=== PATIENT | male | born 1955 | race Asian ===

== ENCOUNTER 2017-03-20 13:14 | Emergency (ER) | payer BC, OTHER ==
[~2017-03-20] VITALS: Ht 170.2 cm; Wt 98.5 kg
[2017-03-20 13:19] VITALS: Ht 170.2 cm; Wt 98.5 kg
[2017-03-20] MEDS ORDERED: ACETAMINOPHEN 500 MG TAB PO STA (14:49)
[2017-03-20 15:05] LABS: URINE BLOOD (Dip) POC 1+ (NEGATIVE)
--- NOTE | 2017-03-20 15:39 | RADRPT ---
PROCEDURE: XR Lumbar Spine. CLINICAL INDICATION: Back pain. TECHNIQUE: 2 views. Frontal and lateral. COMPARISON: No prior studies are available for comparison. FINDINGS: There is normal stature and alignment of the vertebrae. There is no fracture. There is no lytic or blastic lesion. The disk height is normal. Small osteophytes are present anteriorly at L2-3, L3-4, and L4-5. Vascular calcifications are present consistent with atherosclerosis. IMPRESSION: 1. Mild degenerative change. 2. Atherosclerosis. 3. No acute abnormality. RPTAT: QQ .Floyd Antonio MD, MD Date Time Electronically viewed and signed by .Floyd Antonio MD, on 03/20/2017 15:39 .R/
[2017-03-20] MEDS ORDERED: TRAM50TA2 PO (15:52)
--- NOTE | 2017-03-20 16:53 | ERD ---
ER Documentation Chief Complaint Date/Time DATE: 03/20/17 TIME: 16:52 Chief Complaint LOWER BACK PAIN X 5 DAYS HPI Patient is a 61 year old male with PMHx of HTN, DM, COPD, CKD who presents to the ED with lower back pain x 5 days. Patient states pain is localized to left lumbar region. Patient states the pain started after sleeping on the couch. Patient states the pain is worse with movement and when getting up from a sitting to standing position. Patient states that he initially was unable to lift his left leg when lying down secondary to pain, however it is slowly improving. Patient denies any dysuria, frequency, urgency or hematuria. Patient denies any saddle anesthesia, urinary incontinence, stool incontinence, night pain, history of cancer or recent trauma. Patient denies any fever, chills, chest pain, SOB, abdominal pain, neck pain. ROS All systems reviewed and are negative except as per history of present illness. Medications Home Meds Active Scripts Tramadol HCl (Tramadol HCl) 50 Mg Tablet, 50 MG PO Q4 Y for PAIN, #20 TAB Prov:JORGE DUMONT PA-C 03/20/17 Allergies Allergies: Coded Allergies: No Known Allergy (Unverified , 03/20/17) PMhx/Soc History of Surgery: No Anesthesia Reaction: No Hx Neurological Disorder: Yes (STROKE ) Hx Cardiac Disorders: No Hx Miscellaneous Medical Probl: Yes (HTN. HIGH CHOLESTEROL. DM .) Hx Alcohol Use: No Hx Substance Use: No Hx Tobacco Use: Yes Smoking Status: Current some day smoker Physical Exam Vitals Vital Signs Date Time Temp Pulse Resp B/P Pulse Ox O2 Delivery O2 Flow Rate FiO2 03/20/17 13:19 97.8 89 18 131/85 95 Physical Exam GENERAL: Well-developed, well-nourished male. Appears in no acute distress. HEAD: Normocephalic, atraumatic. EYES: Pupils are equally reactive bilaterally. EOMs grossly intact. No conjunctival erythema. ENT: Moist mucous membranes. No uvula deviation. No kissing tonsils. NECK: Supple. No meningismus. Normal range of motion of the neck. LUNG: Clear to auscultation bilaterally. No rhonchi, wheezing, rales or coarse breath sounds. HEART: Regular rate and rhythm. No murmurs, rubs or gallops. ABDOMEN: No scars, ecchymosis or rashes noted. Soft, nontender, and nondistended. Positive bowel sounds in all four quadrants. No rebound tenderness , no guarding. (-) McBurney's point tenderness. No CVA tenderness. BACK: No midline tenderness. Negative straight leg raise bilaterally. EXTREMITIES: Equal pulses bilaterally. No peripheral clubbing, cyanosis or edema. No unilateral leg swelling. NEUROLOGIC: Alert and oriented. Moving all four extremities without any difficulty. Normal speech. Steady gait. SKIN: Normal color. Warm and dry. No rashes or lesions. Results 24 hrs Laboratory Tests Test 03/20/17 15:06 Bedside Urine pH (LAB) 5.0 Bedside Urine Protein (LAB) 3+ Bedside Urine Glucose (UA) Negative Bedside Urine Ketones (LAB) Negative Bedside Urine Blood 1+ Bedside Urine Nitrite (LAB) Negative Bedside Urine Leukocyte Esterase (L Negative Current Medications Medications (Trade) Dose Ordered Sig/Caden Route PRN Reason Start Time Stop Time Status Last Admin Dose Admin Acetaminophen (Tylenol Tab) 1,000 mg ONCE STAT PO 03/20/17 14:49 03/20/17 14:51 DC 03/20/17 15:16 Procedures/MDM ED COURSE: The patient was stable throughout ED course. I kept the patient and/or family informed of laboratory and diagnostic imaging results throughout the ED course. DIAGNOSTIC IMAGING: Read by radiologist. DIAGNOSTIC IMAGING REPORT Patient: COURTNEY LONGORIA : 1955 Age: 61 Sex: M MR #: [id number] DOS: 03/20/17 1449 Ordering MD: JORGE DUMONT PA-C Location: [facility] Room/Bed: PROCEDURE: XR Lumbar Spine. CLINICAL INDICATION: Back pain. TECHNIQUE: 2 views. Frontal and lateral. COMPARISON: No prior studies are available for comparison. FINDINGS: There is normal stature and alignment of the vertebrae. There is no fracture. There is no lytic or blastic lesion. The disk height is normal. Small osteophytes are present anteriorly at L2-3, L3 -4, and L4-5. Vascular calcifications are present consistent with atherosclerosis. IMPRESSION: 1. Mild degenerative change. 2. Atherosclerosis. 3. No acute abnormality. RPTAT: QQ .Floyd Antonio MD, MD Date Time Electronically viewed and signed by .Floyd Antonio MD, MD on 03/20/2017 15:39 .R/ CC: JORGE DUMONT PA-C MEDICATIONS GIVEN: Tylenol Patient tolerated medication well with no adverse reactions. Patient reported improvement in pain. MEDICAL DECISION MAKING: This is a 52 year old male who presents with back pain x 5 days. Vital signs were reviewed. Patient was afebrile. Patient denied any saddle anesthesia, urinary incontinence, bowel incontinence, night pain or recent trauma. Lumbar Xray showed Small osteophytes are present anteriorly at L2-3, L3-4, and L4-5. Urine dip showed 1+ blood, however patient denied any flank pain, dysuria, frequency or urgency. Given these findings, the patient's presentation is most consistent with lumbar strain. I have a much lower clinical concern for cauda equine syndrome, spinal fractures, epidural abscess, spinal metastases, osteomyelitis, aortic dissection, ruptured or leaking AA, pyelonephritis or nephrolithiasis. PRESCRIPTIONS: Tramadol DISCHARGE: At this time, patient is stable for discharge and outpatient management. RICE therapy and ROM exercises were advised to avoid stiffness. I have instructed the patient to follow-up with his/her primary care physician in 1-2 days. I have discussed with the patient the possibility of needing to see an training development specialist for further workup and imaging if the pain persists. I have instructed the patient to promptly return to the ER for any new or worsening symptoms including increased pain, swelling, warmth, urinary incontinence, stool incontinence, weakness or numbness. The patient and/or family expressed understanding of and agreement with this plan. All questions were answered. Home care instructions were provided. Departure Diagnosis: Primary Impression: Back pain Back pain location: low back pain Chronicity: acute Back pain laterality: left Sciatica presence: unspecified whether sciatica present Qualified Code: M54.5 - Acute left-sided low back pain, with sciatica presence unspecified Condition: Stable Patient Instructions: Back Pain (Acute Or Chronic) Referrals: COMMUNITY CLINICS YOU HAVE RECEIVED A MEDICAL SCREENING EXAM AND THE RESULTS INDICATE THAT YOU DO NOT HAVE A CONDITION THAT REQUIRES URGENT TREATMENT IN THE EMERGENCY DEPARTMENT. FURTHER EVALUATION AND TREATMENT OF YOUR CONDITION CAN WAIT UNTIL YOU ARE SEEN IN YOUR DOCTORS OFFICE WITHIN THE NEXT 1-2 DAYS. IT IS YOUR RESPONSIBILITY TO MAKE AN APPOINTMENT FOR FOLOW-UP CARE. IF YOU HAVE A PRIMARY DOCTOR --you should call your primary doctor and schedule an appointment IF YOU DO NOT HAVE A PRIMARY DOCTOR YOU CAN CALL OUR PHYSICIAN REFERRAL HOTLINE AT IF YOU CAN NOT AFFORD TO SEE A PHYSICIAN YOU CAN CHOSE FROM THE FOLLOWING [facility] [address] [facility] [address] [facility] [facility] [address] [facility] [address] [facility] [address] [facility] [facility] [address] [facility]. [facility] YOU HAVE RECEIVED A MEDICAL SCREENING EXAM AND THE RESULTS INDICATE THAT YOU DO NOT HAVE A CONDITION THAT REQUIRES URGENT TREATMENT IN THE EMERGENCY DEPARTMENT. FURTHER EVALUATION AND TREATMENT OF YOUR CONDITION CAN WAIT UNTIL YOU ARE SEEN IN YOUR DOCTORS OFFICE WITHIN THE NEXT 1-2 DAYS. IT IS YOUR RESPONSIBILITY TO MAKE AN APPOINTMENT FOR FOLOW-UP CARE. IF YOU HAVE A PRIMARY DOCTOR --you should call your primary doctor and schedule and appointment IF YOU DO NOT HAVE A PRIMARY DOCTOR YOU CAN CALL OUR PHYSICIAN REFERRAL HOTLINE AT . IF YOU CAN NOT AFFORD TO SEE A PHYSICIAN YOU CAN CHOSE FROM THE FOLLOWING [facility]: [facility] [address] [place] [address] [facility] [address] [place] [address] [facility] [address] [place] [address] [facility] Hours: Mon-Fri 9:00 AM - 5:00 PM Additional Instructions: Call your primary care doctor TOMORROW for an appointment during the next 1-2 days.See the doctor sooner or return here if your condition worsens before your appointment time. Patient will need to follow-up with an training development specialist for further management of his symptoms. JORGE DUMONT PA-C March 20, 2017 16:53
== END 2017-03-20 16:00 | disposition home or self-care (01) ==
LOC: FTE 13:14
DX: M54.5 Low back pain (principal); E11.9 Type 2 diabetes mellitus without complications; J44.9 Chronic obstructive pulmonary disease, unspecified; I12.9 Hypertensive chronic kidney disease with stage 1 through stage 4 chronic kidney disease, or unspecified chronic kidney disease; N18.9 Chronic kidney disease, unspecified
CPT/HCPCS: 72100; 81003

== ENCOUNTER 2017-08-04 11:14 | Inpatient (IN) | payer BC ==
[~2017-08-04] VITALS: Ht 160 cm; Wt 102.1 kg
[~2017-08-04 11:14] MED LIST: TRAM50TA2 PO
--- NOTE | 2017-08-04 11:40 | ERA ---
ER Documentation Chief Complaint Date/Time DATE: 08/04/17 TIME: 11:40 Chief Complaint sob 1 d HPI The patient is a 61-year-old male, presenting with acute dyspnea for 1 day, associated with cough. He had similar symptoms previously, he denies fever, chills, neck pain, chest pain, abdominal pain, vomiting, dysuria, diarrhea. He used to smoke but quit many years ago, drinks socially. He went to urgent care where he was treated with nebulizer treatment with minimal response and sent to the ER for further evaluation Past medical history: See history of CVA, hypertension, dyslipidemia, diabetes mellitus, COPD, asthma, chronic kidney disease ROS All systems reviewed and are negative except as per history of present illness. Medications Home Meds Active Scripts Tramadol HCl (Tramadol HCl) 50 Mg Tablet, 50 MG PO Q4 Y for PAIN, #20 TAB Prov:JORGE DUMONT PA-C 03/20/17 Allergies Allergies: Coded Allergies: No Known Allergy (Unverified , 03/20/17) PMhx/Soc History of Surgery: No Anesthesia Reaction: No Hx Neurological Disorder: Yes (STROKE ) Hx Cardiac Disorders: No Hx Miscellaneous Medical Probl: Yes (HTN. HIGH CHOLESTEROL. DM .) Hx Alcohol Use: No Hx Substance Use: No Hx Tobacco Use: Yes Physical Exam Vitals Vital Signs Date Time Temp Pulse Resp B/P Pulse Ox O2 Delivery O2 Flow Rate FiO2 08/04/17 12:17 86 22 96 21 08/04/17 11:45 91 26 140/95 92 Room Air 08/04/17 11:17 98.5 99 18 146/75 92 Physical Exam Const: No acute distress. Head: Atraumatic. Eyes: Normal Conjunctiva. ENT: Normal External Ears, Nose and Mouth. Neck: Full range of motion. No meningismus. Resp: Tachypneic, bilateral expiratory wheezes Cardio: Regular rate and rhythm. Abd: Soft, non distended, normal bowel sounds, non tender. Skin: No petechiae or rashes. Back: No midline or flank tenderness. Ext: No cyanosis, or edema. Neur: Awake and alert. No focal deficit Psych: Normal Mood and Affect. Result Diagram: 08/04/17 1210 08/04/17 1210 Results 24 hrs Laboratory Tests Test 08/04/17 12:10 9/18/17 13:13 White Blood Count 10.310^3/ul Red Blood Count 5.0410^6/ul Hemoglobin 14.9g/dl Hematocrit 45.3% Mean Corpuscular Volume 89.9fl Mean Corpuscular Hemoglobin 29.6pg Mean Corpuscular Hemoglobin Concent 32.9g/dl Red Cell Distribution Width 13.5% Platelet Count 47111^3/UL Mean Platelet Volume 10.0fl Neutrophils % 69.5% Lymphocytes % 12.9% Monocytes % 11.3% Eosinophils % 5.5% Basophils % 0.5% Nucleated Red Blood Cells % 0.0/100WBC Neutrophils # 7.210^3/ul Lymphocytes # 1.310^3/ul Monocytes # 1.210^3/ul Eosinophils # 0.610^3/ul Basophils # 0.110^3/ul Nucleated Red Blood Cells # 0.010^3/ul Prothrombin Time 12.7Sec Prothrombin Time Ratio 1.0 INR International Normalized Ratio 0.95 Activated Partial Thromboplast Time 30.1Sec Sodium Level 142mmol/L Potassium Level 4.0mmol/L Chloride Level 106mmol/L Carbon Dioxide Level 27mmol/L Anion Gap 13 Blood Urea Nitrogen 17mg/dl Creatinine 1.43mg/dl Glucose Level 109mg/dl Lactic Acid Level 1.5mmol/L Calcium Level 9.1mg/dl Total Bilirubin 0.5mg/dl Direct Bilirubin 0.00mg/dl Indirect Bilirubin 0.5mg/dl Aspartate Amino Transf (AST/SGOT) 21IU/L Alanine Aminotransferase (ALT/SGPT) 38IU/L Alkaline Phosphatase 52IU/L Troponin I < 0.012ng/ml Total Protein 7.4g/dl Albumin 4.0g/dl Globulin 3.40g/dl Albumin/Globulin Ratio 1.17 Urine Color YELLOW Urine Clarity CLEAR Urine pH 6.0 Urine Specific [place] 1.020 Urine Ketones NEGATIVEmg/dL Urine Nitrite NEGATIVEmg/dL Urine Bilirubin NEGATIVEmg/dL Urine Urobilinogen NEGATIVEmg/dL Urine Leukocyte Esterase NEGATIVELeu/ul Urine Microscopic RBC 2/HPF Urine Microscopic WBC 2/HPF Urine Hemoglobin NEGATIVEmg/dL Urine Glucose 1+mg/dL Urine Total Protein 3+mg/dl Current Medications Medications (Trade) Dose Ordered Sig/Caden Route PRN Reason Start Time Stop Time Status Last Admin Dose Admin Levalbuterol (Xopenex Neb) 3.75 mg ONCE STAT INH 08/04/17 11:53 08/04/17 11:56 DC 08/04/17 12:11 Ipratropium [place] (Atrovent 0.02% (Neb)) 1.5 mg ONCE STAT INH 08/04/17 11:53 08/04/17 11:56 DC 08/04/17 12:11 Methylprednisolone Sodium Succinate 125 mg 125 mg ONCE STAT IV 08/04/17 11:53 08/04/17 11:56 DC 08/04/17 12:58 Ceftriaxone Sodium 50 ml @ 100 mls/hr ONCE ONCE IVPB 08/04/17 13:00 08/04/17 13:29 DC 08/04/17 13:44 Azithromycin (Zithromax 500mg/ NS (Pmx)) 250 ml @ 250 mls/hr ONCE ONCE IVPB 08/04/17 13:00 08/04/17 13:59 08/04/17 13:45 Procedures/[place] [id number] Radiology Main Line: [phone] DIAGNOSTIC IMAGING REPORT Patient: COURTNEY LONGORIA : 1955 Age: 61 Sex: M MR #: [id number] DOS: 08/04/17 1153 Ordering MD: ROMY ADAIR MD Location: E/R Room/Bed: PROCEDURE: Chest Radiograph. CLINICAL INDICATION: Chest pain TECHNIQUE: Single frontal chest radiograph. COMPARISON: Chest radiograph 10/28/2013 FINDINGS: The cardiomediastinal silhouette is within normal limits. No infiltrate or effusion is seen. The bones are intact. IMPRESSION: 1. Unremarkable chest radiograph. RPTAT: KK .Tyson Mai MD, Date Time Electronically viewed and signed by .Tyson Mai MD, MD on 2016 12:49 .B/ CC: ROMY ADAIR MD EKG: Read by emergency physician Rate/Rhythm: Normal Sinus Rhythm 84 beats/min QRS, ST, T-waves: No ST elevation, no T inversion, Sinus arrhythmia, right bundle branch block Impression: Abnormal EKG MEDICAL MAKING DECISION: The patient is a 71-year-old male, presenting with acute COPD exacerbation. He was treated with Solu-Medrol 125 mg IV, Xopenex 3.75 mg and Atrovent 1.5 mg continuous nebulizer over one hour, Rocephin 1 g IV and Zithromax 500 mg IV with good response. The differential diagnoses considered include but are not limited to asthma, COPD, pneumonia, pulmonary embolus, pleural effusion, congestive heart failure. Critical Care: Time: 35 minutes excluding all billable procedures. Treatments/Evaluations: Close monitoring and treatment of unstable vital signs, cardiorespiratory, and neurologic status, while maintaining tight balance of fluid, respiratory, and cardiac interventions. Departure Diagnosis: Primary Impression: COPD exacerbation Condition: Stable Comments I discussed the findings with the patient. I discussed the patient with his physician Dr. Black who was made aware of the lab, the treatment, the patient condition. The patient is admitted to [facility] at 1:45 pm ROMY ADAIR MD Aug 04, 2017 11:40
[2017-08-04] MEDS ORDERED: METHYLPREDNISOLONE 125 MG INJ IV STA (11:53)
[2017-08-04] MEDS ORDERED: LEVALBUTEROL (NEB) 1.25 MG/0.5 ML AMP INH STA (11:53)
[2017-08-04] MEDS ORDERED: IPRATROPIUM (NEB) 0.5 MG/2.5 ML AMP INH STA (11:53)
[2017-08-04 12:41] LABS: BASOPHIL # 0.1 10^3/ul (0.0-0.1); BASOPHILS % 0.5 % (0.0-2.0); EOSINOPHILS # 0.6 10^3/ul (0.0-0.5); EOSINOPHILS % 5.5 % (0.0-7.0); HEMATOCRIT 45.3 % (42.0-52.0); HEMOGLOBIN 14.9 g/dl (14.0-18.0); LYMPHOCYTES # 1.3 10^3/ul (0.8-2.9); LYMPHOCYTES % 12.9 % (15.0-51.0); MEAN CORPUSCULAR HEMOGLOBIN 29.6 pg (29.0-33.0); MEAN CORPUSCULAR HGB CONC 32.9 g/dl (32.0-37.0); MEAN CORPUSCULAR VOLUME 89.9 fl (82.0-101.0); MONOCYTE # 1.2 10^3/ul (0.3-0.9); MONOCYTES % 11.3 % (0.0-11.0); NEUTROPHIL # 7.2 10^3/ul (1.6-7.5); NEUTROPHILS % 69.5 % (39.0-77.0); PLATELET COUNT 273 10^3/UL (140-415); RED BLOOD COUNT 5.04 10^6/ul (4.70-6.10); RED CELL DISTRIBUTION WIDTH 13.5 % (11.5-14.5); WHITE BLOOD COUNT 10.3 10^3/ul (4.8-10.8)
--- NOTE | 2017-08-04 12:49 | RADRPT ---
PROCEDURE: Chest Radiograph. CLINICAL INDICATION: Chest pain TECHNIQUE: Single frontal chest radiograph. COMPARISON: Chest radiograph 10/28/2013 FINDINGS: The cardiomediastinal silhouette is within normal limits. No infiltrate or effusion is seen. Th e bones are intact. IMPRESSION: 1. Unremarkable chest radiograph. RPTAT: KK .Tyson Mai MD, MD Date Time Electronically viewed and signed by .Tyson Mai MD, on 08/04/2017 12:49 .B/
[2017-08-04] MEDS ORDERED: CEFTRIAXONE 1 GM/50 ML (PMX) 50 ML IVPB ONE (13:00)
[2017-08-04] MEDS ORDERED: AZITHROMYCIN 500MG/NS (PMX) 250 ML IVPB ONE (13:00)
[2017-08-04 13:06] LABS: ALANINE AMINOTRANSFERASE 38 IU/L (13-69); ALBUMIN/GLOBULIN RATIO 1.17; ALKALINE PHOSPHATASE 52 IU/L (42-121); ANION GAP 13 (8-16); ASPARTATE AMINO TRANSFERASE 21 IU/L (15-46); BILIRUBIN,INDIRECT 0.5 mg/dl (0-1.1); BILIRUBIN,TOTAL 0.5 mg/dl (0.2-1.3); BLOOD UREA NITROGEN 17 mg/dl (7-20); CALCIUM 9.1 mg/dl (8.4-10.2); CARBON DIOXIDE 27 mmol/L (21-31); CHLORIDE 106 mmol/L (97-110); CREATININE 1.43 mg/dl (0.61-1.24); GLUCOSE 109 mg/dl (70-220); SODIUM 142 mmol/L (135-144); TOTAL PROTEIN 7.4 g/dl (6.1-8.1)
[2017-08-04 13:25] LABS: TROPONIN-I < 0.012 ng/ml (0.00-0.12)
[2017-08-04 13:26] LABS: INR 0.95; PARTIAL THROMBOPLASTIN TIME 30.1 Sec (25.0-35.0); PROTIME 12.7 Sec (12.2-14.2)
[2017-08-04 13:31] LABS: ADD UMIC YES; UR ASCORBIC ACID NEGATIVE (NEGATIVE); UR BILIRUBIN (Dip) NEGATIVE (NEGATIVE); UR BLOOD (Dip) NEGATIVE (NEGATIVE); UR CLARITY CLEAR (CLEAR); UR COLOR YELLOW (YELLOW); UR GLUCOSE (Dip) 1+ mg/dL (NEGATIVE); UR KETONES (Dip) NEGATIVE (NEGATIVE); UR LEUKOCYTE ESTERASE (Dip) NEGATIVE Leu/ul (NEGATIVE); UR NITRITE (Dip) NEGATIVE (NEGATIVE); UR RBC 2 /HPF (0-5); UR TOTAL PROTEIN (Dip) 3+ mg/dl (NEGATIVE); UR UROBILINOGEN (Dip) NEGATIVE (NEGATIVE)
[2017-08-04] MEDS ORDERED: PANT40TA3 PO (14:48)
[2017-08-04] MEDS ORDERED: ATOR40TA68 PO (14:49)
[2017-08-04] MEDS ORDERED: AMLO-147 PO (14:49)
[2017-08-04] MEDS ORDERED: SITA100T8 PO (14:49)
[2017-08-04] MEDS ORDERED: VALS320T11 PO (14:49)
[2017-08-04] MEDS ORDERED: ADV50050 INHALATION (14:50)
[2017-08-04] MEDS ORDERED: TIOT18CA INHALATION (14:50)
--- NOTE | 2017-08-04 14:50 | HP ---
Date/Time of Note Date/Time of Note DATE: 08/04/17 TIME: 14:50 Assessment/Plan VTE Prophylaxis VTE Prophylaxis Intervention: heparin Assessment/Plan Assessment/Plan 61-year-old male with: 1. Respiratory distress, wheezing, secondary to COPD exacerbation and possible underlying bronchitis. Levaquin for antibiotic treatment, patient already completed almost 10 days of azithromycin as an outpatient apparently Continue Advair, Spiriva, Xopenex nebulizer Continue steroid therapy with Solu-Medrol IV Supplemental oxygen as needed, goal O2 sat 92% Check BNP and echocardiogram. 2. COPD, non-oxygen dependent, continue maintenance therapy and with this current acute exacerbation, he is placed on steroids and antibiotics. 3. Possible bronchitis: Continue Levaquin 4. Diabetes mellitus: Check hemoglobin A1c, continue outpatient oral hypoglycemic agent, patient is on Januvia, sliding scale insulin especially while on steroids. 5. Hypertension: Continue home medications 6. Chronic kidney disease, likely stage II-III: Monitor renal function 7. Old CVA, continue current medications 8. GERD: Continue Protonix Prophylaxis: Protonix for GI prophylaxis, Lovenox for DVT prophylaxis Disposition: Telemetry observation, treatment for COPD exacerbation. HPI/ROS Admit Date/Time Admit Date/Time Hx of Present Illness Chief complaint: Shortness of breath History of presenting illness: This is a 61-year-old male with history of COPD, hypertension, diabetes mellitus, hyperlipidemia, previous CVA a year ago also recent treatment for COPD exacerbation apparently approximately 2 weeks ago with azithromycin, prednisone taper and his usual inhalers. He was presenting today with severe shortness of breath this morning. Patient went to urgent care at first but then was redirected to the ER. Patient reports that he has been having some wheezing and shortness of breath the past 3 days but it got so bad this morning that he could not breathe. Patient does have a nebulizer machine at home, he is already on Advair and Spiriva, he also has Xopenex inhalers as needed. He is followed by outpatient pulmonary. It is unclear if he increase his nebulizer treatment when he started being symptomatic but upon arrival in the emergency department he was audibly wheezing, tachypneic, he is able to maintain his oxygen saturation around 91-96% especially after nebulizer treatments. Chest x-ray is benign does not show any acute findings. After nebulizer treatment he was able to saturate 96% on room air, comfortable, however still with expiratory wheezes and some inspiratory wheezes on exam. Being admitted to telemetry bed for treatment of COPD exacerbation I will also complete a brief cardiac workup including echocardiogram patient does have a lot of risk factors. ROS Constitutional: no complaints Eyes: no complaints ENT: no complaints Respiratory: shortness of breath, wheezing Cardiovascular: no complaints Gastrointestinal: no complaints Genitourinary: no complaints Musculoskeletal: no complaints Skin: no complaints Neurologic: no complaints Lymphatic: no complaints Psychological: no complaints PMH/Family/Social Past Medical History Diabetes mellitus Hypertension Hyperlipidemia Previous CVA with some mild expressive aphasia at times, forgetfulness and issues with decision-making at time. COPD Chronic kidney disease likely stage II Past Surgical History Status post arthroscopic knee procedure, left knee remotely Family History Significant Family History: no pertinent family hx Social History Alcohol Use: none Smoking Status: Former smoker Drug Use: none Exam/Review of Systems Vital Signs Vitals Vital Signs Date Time Temp Pulse Resp B/P Pulse Ox O2 Delivery O2 Flow Rate FiO2 08/04/17 12:17 86 22 96 21 08/04/17 11:45 140/95 Room Air 08/04/17 11:17 98.5 Exam Constitutional: alert, oriented, well developed Respiratory: normal air movement, wheezing (Bilateral mostly expiratory wheezes ) Cardiovascular: nl pulses, regular rate and rhythm Gastrointestinal: non-tender, soft Musculoskeletal: nl extremities to inspection Extremities: normal pulses, other (No edema, clubbing or cyanosis) Neurological: SUBSTATION TECHNICIAN II-XII intact, nl mental status, nl speech, nl strength Labs Result Diagram: 08/04/17 1210 08/04/17 1210 Medications Medications Home medications: see home medication reconciliation Procedures Procedures PROCEDURE: Chest Radiograph. CLINICAL INDICATION: Chest pain TECHNIQUE: Single frontal chest radiograph. COMPARISON: Chest radiograph 10/28/2013 FINDINGS: The cardiomediastinal silhouette is within normal limits. No infiltrate or effusion is seen. The bones are intact. IMPRESSION: 1. Unremarkable chest radiograph. RPTAT: KK .Tyson Mai MD, Date Time Electronically viewed and signed by .Tyson Mai MD, on 2016 12:49 EKG: Normal sinus rhythm 84 bpm with right bundle branch block BRIDGETTE BEAULIEU Aug 04, 2017 14:50
[2017-08-04] MEDS ORDERED: ALBU8.5H3 INH (14:51)
[2017-08-04] MEDS ORDERED: morphine 2 MG INJ IV PRN (15:30)
[2017-08-04] MEDS ORDERED: ZOLPIDEM 5 MG TAB PO PRN (15:30)
[2017-08-04] MEDS ORDERED: BISACODYL 10 MG SUPP PR PRN (15:30)
[2017-08-04] MEDS ORDERED: DOCUSATE SODIUM 100 MG CAP PO PRN (15:30)
[2017-08-04] MEDS ORDERED: LEVALBUTEROL (NEB) 0.63 MG/3 ML AMP HHN PRN (15:30)
[2017-08-04] MEDS ORDERED: ACETAMINOPHEN 325 MG TAB PO PRN (15:30)
[2017-08-04] MEDS ORDERED: MAGNESIUM HYDROXIDE 30ML CUP PO PRN (15:30)
[2017-08-04] MEDS ORDERED: NACL 0.9% 3 ML SYG IV SCH (15:30)
[2017-08-04] MEDS ORDERED: HYDROCODONE/APAP (5/325) TAB PO PRN (15:30)
[2017-08-04] MEDS ORDERED: GLUCOSE GEL 15 GRAM TUBE BUCCAL PRN (15:30)
[2017-08-04] MEDS ORDERED: ONDANSETRON 4 MG INJ IV PRN (15:30)
[2017-08-04] MEDS ORDERED: DEXTROSE 50% 50 ML SYRINGE IV PRN ×2 (15:30)
[2017-08-04] MEDS ORDERED: GLUCOSE GEL 15 GRAM TUBE PO PRN ×2 (15:30)
[2017-08-04] MEDS ORDERED: LORAZEPAM 0.5 MG TAB PO PRN (15:30)
[2017-08-04] MEDS ORDERED: GLUCAGON 1 MG INJ IM PRN (15:30)
[2017-08-04] MEDS: LEVALBUTEROL (NEB) 0.63 MG/3 ML AMP HHN SCH (15:58)
[2017-08-04 16:23] VITALS: PULSE 100
[2017-08-04 16:34] VITALS: Ht 160 cm; Wt 102.1 kg
[2017-08-04 17:11] VITALS: BP 146/84; PULSE 97; RESP 18
[2017-08-04 19:52] VITALS: BP 136/80; RESP 19
[2017-08-04 20:05] VITALS: PULSE 96
[2017-08-04] MEDS ORDERED: ATORVASTATIN 40 MG TAB PO SCH (21:00)
[2017-08-04] MEDS: METHYLPREDNISOLONE 125 MG INJ IV SCH (21:05)
[2017-08-04] MEDS: SALMETEROL/FLUTICASONE 500/50 INHA INH SCH (21:05)
[2017-08-04] MEDS: INSULIN ASPART [NOVOLOG] 3 ML PEN SC SCH (21:16)
[2017-08-04 21:42] LABS: CREATINE KINASE 170 IU/L (23-200)
[2017-08-04 21:56] LABS: CK-MB 1.12 ng/ml (0.0-2.4); TROPONIN-I < 0.012 ng/ml (0.00-0.12)
[2017-08-04 23:54] VITALS: BP 141/90; RESP 18
[2017-08-05] VITALS (8 sets, daily range): BP systolic 134–171; BP diastolic 74–91; PULSE 78–162; RESP 18–20
[2017-08-05] MEDS: LEVALBUTEROL (NEB) 0.63 MG/3 ML AMP HHN SCH ×2 (00:23→08:30)
[2017-08-05] MEDS ORDERED: ACCU-CHEK XX SCH (02:00)
[2017-08-05] MEDS: METHYLPREDNISOLONE 125 MG INJ IV SCH (05:57)
[2017-08-05] MEDS ORDERED: PANTOPRAZOLE (EC) 40 MG TAB PO SCH (06:00)
[2017-08-05] MEDS ORDERED: LEVOFLOXACIN 750 MG TABLET PO SCH (06:00)
[2017-08-05 07:33] LABS: HEMOGLOBIN 14.5 g/dl (14.0-18.0); LYMPHOCYTES % 11.1 % (15.0-51.0); MEAN CORPUSCULAR HEMOGLOBIN 29.4 pg (29.0-33.0); MEAN CORPUSCULAR VOLUME 89.1 fl (82.0-101.0); MEAN PLATELET VOLUME 9.7 fl (7.4-10.4); MONOCYTE # 0.3 10^3/ul (0.3-0.9); MONOCYTES % 2.7 % (0.0-11.0); NEUTROPHIL # 7.9 10^3/ul (1.6-7.5); NEUTROPHILS % 85.4 % (39.0-77.0); PLATELET COUNT 278 10^3/UL (140-415); RED BLOOD COUNT 4.94 10^6/ul (4.70-6.10); RED CELL DISTRIBUTION WIDTH 13.3 % (11.5-14.5); WHITE BLOOD COUNT 9.2 10^3/ul (4.8-10.8)
[2017-08-05 08:10] LABS: ALBUMIN 3.7 g/dl (3.3-4.9); ALBUMIN/GLOBULIN RATIO 1.08; BILIRUBIN,INDIRECT 0.3 mg/dl (0-1.1); BILIRUBIN,TOTAL 0.3 mg/dl (0.2-1.3); CALCIUM 8.8 mg/dl (8.4-10.2); CHOL/HDL RATIO 4.2 RATIO; CREATININE 1.38 mg/dl (0.61-1.24); MAGNESIUM 1.9 mg/dl (1.7-2.5); POTASSIUM 4.8 mmol/L (3.5-5.1); TOTAL PROTEIN 7.1 g/dl (6.1-8.1)
[2017-08-05] MEDS: SALMETEROL/FLUTICASONE 500/50 INHA INH SCH (08:17)
[2017-08-05] MEDS: INSULIN ASPART [NOVOLOG] 3 ML PEN SC SCH ×2 (08:22→12:29)
[2017-08-05] MEDS ORDERED: ENOXAPARIN 30 MG/0.3 ML SYG SC SCH (09:00)
[2017-08-05] MEDS ORDERED: ASPIRIN 81 MG TAB PO SCH (09:00)
[2017-08-05] MEDS ORDERED: TIOTROPIUM 18 MCG CAPSULE INHA DEV INH SCH (09:00)
[2017-08-05] MEDS ORDERED: VALSARTAN 160 MG TAB PO SCH (09:00)
[2017-08-05] MEDS ORDERED: LINAGLIPTIN 5 MG TABLET PO SCH (09:00)
[2017-08-05] MEDS ORDERED: AMLODIPINE 10 MG TAB PO SCH (09:00)
--- NOTE | 2017-08-05 12:45 | PN ---
Date/Time of Note Date/Time of Note DATE: 08/05/17 TIME: 12:28 Assessment/Plan VTE Prophylaxis VTE Prophylaxis Intervention: LMWH Lines/Catheters IV [facility]from [facility] Saline Lock Urinary Cath still in place: No Assessment/Plan Assessment/Plan 61-year-old male with: 1. Respiratory distress, wheezing, secondary to COPD exacerbation and possible underlying bronchitis. Much improved this AM, ambulating on RA , no wheezes on exam D/c on Levaquin for antibiotic treatment, patient already completed almost 10 days of azithromycin as an outpatient apparently Continue Advair, Spiriva, Xopenex nebulizer Will discharge on Medrol Dose pack F/u with outpatient pulmonology and PCP BNP stable 2D echocardiogram done and results pending 2. COPD, non-oxygen dependent, continue maintenance therapy and with this current acute exacerbation. Back to baseline, will d/c home on po steroids and antibiotics. 3. Possible bronchitis: Continue Levaquin x 750 mg po q48 x 3 more doses 4. Diabetes mellitus: A1c, resume home meds, patient is on Januvia, sliding scale insulin especially while on steroids. 5. Hypertension: Continue home medications 6. Chronic kidney disease, likely stage II-III: Renal function stable. 7. Old CVA, continue current medications 8. GERD: Continue Protonix Prophylaxis: Protonix for GI prophylaxis, Lovenox for DVT prophylaxis Disposition: d/c home and f/u with PCP and Pulmonary within 1 week Subjective 24 Hr Interval Summary Free Text/Dictation Patient doing well No complaints, ambulating on RA Exam/Review of Systems Vital Signs Vitals Vital Signs Date Time Temp Pulse Resp B/P Pulse Ox O2 Delivery O2 Flow Rate FiO2 08/05/17 12:00 100 08/05/17 11:27 97.7 20 134/74 94 08/05/17 08:35 21 08/05/17 02:38 2.0 08/04/17 20:00 Nasal Cannula Intake and Output 08/04/17 08/04/17 08/05/17 15:00 23:00 07:00 Intake Total 800 ml Balance 800 ml Exam Constitutional: alert, oriented Respiratory: clear to auscultation, normal air movement Cardiovascular: nl pulses, regular rate and rhythm Gastrointestinal: non-tender, soft Musculoskeletal: nl extremities to inspection Extremities: normal pulses Neurological: DRIVER WHEELCHAIR II-XII intact, nl mental status, nl speech, nl strength Results Result Diagram: 08/05/17 0701 08/05/17 0701 Results 24 hrs Laboratory Tests Test 08/04/17 13:13 08/04/17 14:30 08/04/17 16:35 08/04/17 20:41 Urine Color YELLOW Urine Clarity CLEAR Urine pH 6.0 Urine Specific [place] 1.020 Urine Ketones NEGATIVE Urine Nitrite NEGATIVE Urine Bilirubin NEGATIVE Urine Urobilinogen NEGATIVE Urine Leukocyte Esterase NEGATIVE Urine Microscopic RBC 2 Urine Microscopic WBC 2 Urine Hemoglobin NEGATIVE Urine Glucose 1+ H Urine Total Protein 3+ H Lactic Acid Level 1.2 1.6 Bedside Glucose 292 H Test 08/04/17 21:03 08/05/17 02:09 08/05/17 07:01 08/05/17 08:15 Creatine Kinase 170 Creatine Kinase Index 0.7 Creatinine Kinase MB (Mass) 1.12 Troponin I < 0.012 Bedside Glucose 211 185 White Blood Count 9.2 Red Blood Count 4.94 Hemoglobin 14.5 Hematocrit 44.0 Mean Corpuscular Volume 89.1 Mean Corpuscular Hemoglobin 29.4 Mean Corpuscular Hemoglobin Concent 33.0 Red Cell Distribution Width 13.3 Platelet Count 278 Mean Platelet Volume 9.7 Neutrophils % 85.4 H Lymphocytes % 11.1 L Monocytes % 2.7 Eosinophils % 0.0 Basophils % 0.0 Nucleated Red Blood Cells % 0.0 Neutrophils # 7.9 H Lymphocytes # 1.0 Monocytes # 0.3 Eosinophils # 0.0 Basophils # 0.0 Nucleated Red Blood Cells # 0.0 Sodium Level 138 Potassium Level 4.8 Chloride Level 105 Carbon Dioxide Level 24 Anion Gap 14 Blood Urea Nitrogen 29 #H Creatinine 1.38 H Glucose Level 226 #H Calcium Level 8.8 Magnesium Level 1.9 Total Bilirubin 0.3 Direct Bilirubin 0.00 Indirect Bilirubin 0.3 Aspartate Amino Transf (AST/SGOT) 19 Alanine Aminotransferase (ALT/SGPT) 38 Alkaline Phosphatase 45 Total Protein 7.1 Albumin 3.7 Globulin 3.40 H Albumin/Globulin Ratio 1.08 Triglycerides Level 70 Cholesterol Level 194 LDL Cholesterol, Calculated 134 HDL Cholesterol 46 Cholesterol/HDL Ratio 4.2 Test 08/05/17 12:16 Bedside Glucose 221 H Medications Medications Current Medications Lorazepam (Ativan) 0.5 mg Q8H PRN PO ANXIETY; Start 08/04/17 at 15:30 Ondansetron HCl (Zofran Inj) 4 mg Q6H PRN IV NAUSEA AND/OR VOMITING; Start at 15:30 Aspirin (Aspirin) 81 mg DAILY PO Last administered on 08/05/17 08:18; Admin Dose 81 MG; Start 08/05/17 at 09:00 Acetaminophen (Tylenol Tab) 650 mg Q6H PRN PO PAIN LEVEL 1-3 OR FEVER; Start at 15:30 Acetaminophen/ Hydrocodone Bitart ([place] (5/325)) 1 tab Q6H PRN PO PAIN LEVEL 4 -6; Start 08/04/17 at 15:30 Morphine Sulfate (morphine) 2 mg Q4H PRN IV PAIN LEVEL 7-10; Start 08/04/17 at 15:30 Zolpidem Tartrate (Ambien) 5 mg QHS PRN PO INSOMNIA; Start 08/04/17 at 15:30 Docusate Sodium (Colace) 100 mg Q12H PRN PO CONSTIPATION; Start 08/04/17 at 15: 30 Magnesium Hydroxide (Milk Of Mag) 30 ml DAILY PRN PO CONSTIPATION; Start at 15:30 Bisacodyl (Dulcolax Supp) 10 mg DAILY PRN HI CONSTIPATION; Start 08/04/17 at 15 :30 Pantoprazole (Protonix Tab) 40 mg DAILY@06 PO Last administered on 08/05/17 05 :57; Admin Dose 40 MG; Start 08/05/17 at 06:00 Enoxaparin Sodium (Lovenox) 30 mg DAILY SC ; Start 08/05/17 at 09:00 Amlodipine Besylate (Norvasc) 10 mg DAILY PO Last administered on 08/05/17 08: 18; Admin Dose 10 MG; Start 08/05/17 at 09:00 Atorvastatin Calcium (Lipitor) 40 mg QHS PO Last administered on 08/04/17 20: 42; Admin Dose 40 MG; Start 08/04/17 at 21:00 Salmeterol Xinafoate/ Fluticasone (Advair 500/50 Diskus) 1 inh BID INH Last administered on 08/05/17 08:17; Admin Dose 1 INH; Start 08/04/17 at 21:00 Tiotropium [place] (Spiriva) 1 inh DAILY INH Last administered on 08/05/17 08: 17; Admin Dose 1 INH; Start 08/05/17 at 09:00 Valsartan (Diovan) 320 mg DAILY PO Last administered on 08/05/17 08:17; Admin Dose 320 MG; Start 08/05/17 at 09:00 Linagliptin (Tradjenta) 5 mg DAILY PO Last administered on 08/05/17 08:18; Admin Dose 5 MG; Start 08/05/17 at 09:00 Diagnostic Test (Pha) (Accu-Chek) 1 ea 02 XX Last administered on 08/05/17 01: 58; Admin Dose 1 EA; Start 08/05/17 at 02:00 Levofloxacin (Levaquin) 750 mg Q48H PO Last administered on 08/05/17 05:57; Admin Dose 750 MG; Start 08/05/17 at 06:00 Methylprednisolone Sodium Succinate (Solu-Medrol) 60 mg Q8 IV Last administered on 08/05/17 05:57; Admin Dose 60 MG; Start 08/04/17 at 22:00 Miscellaneous Information 1 ea NOTE XX ; Start 08/04/17 at 15:30 Glucose (Glutose) 15 gm Q15M PRN PO DECREASED GLUCOSE; Start 08/04/17 at 15:30 Glucose (Glutose) 22.5 gm Q15M PRN PO DECREASED GLUCOSE; Start 08/04/17 at 15: 30 Dextrose (D50w Syringe) 25 ml Q15M PRN IV DECREASED GLUCOSE; Start 08/04/17 at 15:30 Dextrose (D50w Syringe) 50 ml Q15M PRN IV DECREASED GLUCOSE; Start 08/04/17 at 15:30 Glucagon (Glucagen) 1 mg Q15M PRN IM DECREASED GLUCOSE; Start 08/04/17 at 15:30 Glucose (Glutose) 15 gm Q15M PRN BUCCAL DECREASED GLUCOSE; Start 08/04/17 at 15 :30 BRIDGETTE BEAULIEU Aug 05, 2017 12:40
--- NOTE | 2017-08-05 12:46 | PDOCDIS ---
Discharge Instructions CONDITION Patient Condition: Good HOME CARE INSTRUCTIONS: Special Diet: CARB CONTROLLED ACTIVITY: Activity Restrictions: Slowly Increase Activity FOLLOW UP/APPOINTMENTS Follow-up Plan Follow up with PCP within 1 week Follow up with Outpatient Pulmonary within 1 to 2 weeks BRIDGETTE BEAULIEU Aug 05, 2017 12:46
[2017-08-05] MEDS ORDERED: LEVO750T25 PO (12:48)
[2017-08-05] MEDS ORDERED: MED4DP PO (12:48)
--- NOTE | 2017-08-05 16:47 | RADRPT ---
Echocardiogram Report Patient Name: COURTNEY LONGORIA Gender: Male Date: 1955 Study Date: 05-Aug-2017 [employer] Technician: Ayla Saucedo GIANNI Location: [facility] Ref. Physician: JUDE BEAULIEU Quality: Good Procedures: Transthoracic echocardiogram with complete 2D, M-Mode, and doppler examination. Indications: Pulmonary Hypertension. 2D/M Mode Doppler Measurement Value Normal Ranges Measurement Value Normal Ranges LVIDd 2D 5.0 3.5 - 5.6 cm AV Peak Eugenio 1.3 m/sec LVIDs 2D 3.1 2.1 - 4.1 cm AV Peak PG 7.2 mmHg LVPWd 2D 1.1 0.6 - 1.1 cm LVOT Peak Eugenio 0.9 m/sec IVSd 2D 1.2 0.6 - 1.1 cm LVOT Peak PG 3.3 mmHg AoR Diam 2D 3.0 2.0 - 3.7 cm MV E Peak Eugenio 0.7 m/sec EDV 2D 120.0 cm3 MV A Peak Eugenio 1.0 m/sec ESV 2D 31.2 cm3 MV E/A 0.7 LA Dimen 2D 3.9 2.3 - 4.0 cm MV Decel Time 201 msec MV Decel Wilson 3 MV E/A 0.7 TR Peak Eugenio 2.5 m/sec TR Peak PG 25.4 mmHg RVSP 40.0 mmHg Findings Left Ventricle: Normal left ventricular systolic function. Normal left ventricular cavity size. Mild concentric left ventricular hypertrophy. Ejection fraction is visually estimated at 65 %. Tissue Doppler/Mitral Doppler indices are consistent with impaired relaxation (Stage I diastolic dysfunction). Right Ventricle: Normal right ventricular size. Normal right ventricular systolic function. Left Atrium: The left atrium is normal in size. Right Atrium: The right atrium is normal in size. Mitral Valve: Normal appearance and function of the mitral valve with trace physiologic regurgitation. Aortic Valve: No significant aortic stenosis or insufficiency. Aortic cusps appear mildly calcified. Tricuspid Valve: Normal appearance and function of the tricuspid valve with trace physiologic regurgitation. Estimated peak PA systolic pressure 40 mmHg. Pulmonic Valve: Normal pulmonic valve appearance. Pericardium: Normal pericardium with no significant pericardial effusion. Aorta: Normal aortic root. IVC: Dilated IVC without respiratory collapse consistent with elevated right atrial pressure. Conclusions 1.Normal left ventricular systolic function. Normal left ventricular cavity size. Mild concentric left ventricular hypertrophy. Ejection fraction is visually estimated at 65 %. Tissue Doppler/Mitral Doppler indices are consistent with impaired relaxation (Stage I diastolic dysfunction). 2.Normal right ventricular size. Normal right ventricular systolic function. 3.The left atrium is normal in size. 4.The right atrium is normal in size. 5.No significant valvular stenosis or regurgitation seen. 6.Estimated peak PA systolic pressure 40 mmHg. 7.Normal pericardium with no significant pericardial effusion. Electronically Signed By: Damian Cobian 05-Aug-2017 16:46:22 -0700 Patient Name: COURTNEY LONGORIA Study Date: 05-Aug-2017 [id number]
== END 2017-08-05 14:00 | disposition home or self-care (01) | DRG 192 ==
LOC: E/R 11:14 → TEL 13:49
PROVIDERS: ADMIT Internal Medicine; ATTEND Internal Medicine
DX: J44.1 Chronic obstructive pulmonary disease with (acute) exacerbation (principal); N18.3 Chronic kidney disease, stage 3 (moderate); I12.9 Hypertensive chronic kidney disease with stage 1 through stage 4 chronic kidney disease, or unspecified chronic kidney disease; E11.9 Type 2 diabetes mellitus without complications; Z86.73 Personal history of transient ischemic attack (TIA), and cerebral infarction without residual deficits
CPT/HCPCS: 36415; 71010; 80053; 80061; 81001; 82550; 82553; 82962; 83036; 83605; 83735; 83880; 84484; 85025; 85610; 85730; 87040; 87086; 93005; 93306; 94640; 94644; 94664; 96374; 96375; J0456; J0696; J1650; J2930